=== PATIENT | male | born 1965 | race Caucasian/White ===

== ENCOUNTER → 2019-12-30 | Outpatient (CLI) | payer OTHER | END | disposition home or self-care (01) | LOC: LABWHC1 08:52 | PROVIDERS: ATTEND Surgery | DX: U07.1 COVID-19 (principal) | CPT/HCPCS: 87635 ==

== ENCOUNTER → 2020-03-09 | Outpatient (CLI) | payer OTHER ==
[2020-03-09 15:22] LABS: HCT 40.7 % (39.0-53.0); HGB 12.8 gm/dL (13.0-17.5); MCH 29.8 pg (25.0-35.0); MCHC 31.6 g/dL (31.0-37.0); MCV 94.6 fL (80.0-100.0); Mean Platelet Volume 8.4; Platelet Count 187 k/uL (150-450); RDW 13.6 % (11.5-15.5); WBC 8.3 k/uL (3.8-10.6)
[2020-03-09 15:31] LABS: African American GFR (CKD) >90 (>60 ml/min/1.73 sqM); Anion Gap 7 mmol/L; Blood Urea Nitrogen 17 mg/dL (9-20); Carbon Dioxide 24 mmol/L (22-30); Chloride 106 mmol/L (98-107); Non-African American GFR(CKD) >90 (>60 ml/min/1.73 sqM); Potassium 4.3 mmol/L (3.5-5.1); Sodium 137 mmol/L (137-145)
== END | disposition home or self-care (01) ==
LOC: LABPAT 14:53
PROVIDERS: ATTEND Internal Medicine Interventional Cardiology
DX: Z01.818 Encounter for other preprocedural examination (principal); I70.213 Atherosclerosis of native arteries of extremities with intermittent claudication, bilateral legs
CPT/HCPCS: 36415; 80051; 82565; 84520; 85027

== ENCOUNTER 2020-03-16 06:29 | Day surgery (SDC) | payer OTHER ==
[2020-03-09 16:01] VITALS: BMI 22.7
[~2020-03-16 06:29] MED LIST: SODIUM CHLORIDE 0.9% 1,000 ML in EMPTY BAG 1 BAG IV ONE
[2020-03-16] MEDS ORDERED: amLODIPine 10 MG TAB PO STA (06:50)
[2020-03-16] MEDS ORDERED: lisinopriL 20 MG TAB PO STA (06:50)
[2020-03-16 06:55] VITALS: RESP 16; TEMP 98
[2020-03-16] MEDS: LIDOCAINE 1% INJ 10MG/ML (20 ML MDV) SQ ONE ×2 (08:00→08:04)
[2020-03-16] MEDS ORDERED: MIDAZOLAM 2 MG/2 ML VIAL IV ONE (08:00)
[2020-03-16] MEDS ORDERED: IOPAMIDOL-250 100ML BTL INTRAARTER ONE (08:26)
[2020-03-16] MEDS ORDERED: IOPAMIDOL-250 50ML BTL INTRAARTER ONE (08:27)
[2020-03-16] MEDS ORDERED: SODIUM CHLORIDE 0.9% 1,000 ML IV SCH (08:30)
--- NOTE | 2020-03-16 09:09 | IR ---
EXAMINATION TYPE: IR angio abdominal w runoff DATE OF EXAM: 03/16/2020 CLINICAL HISTORY: Peripheral vascular disease. TECHNIQUE: Fluoroscopy. COMPARISON: None. FINDINGS: Fluoroscopic guidance was provided during abdominal angiogram with runoff procedure perfor med by Dr. New. A total of 1.9 minutes of fluoroscopic time was utilized during the procedure and 0 spot images are saved to PACS. IMPRESSION: As Above.
--- NOTE | 2020-03-16 09:59 | AN ---
ANGIOGRAPHY REPORT DATE OF SERVICE: 03/16/2020 PERFORMING PHYSICIAN: Lefty New MD. PROCEDURE PERFORMED: 1. An abdominal aortogram. 2. Bilateral lower extremities runoff. INDICATION: This is a pleasant 54-year-old gentleman with hypertension and dyslipidemia and history of smoking as well as history of peripheral arterial disease where in the past, he underwent right femoral endarterectomy with [id number] fem-fem bypass, was performed several years ago, was experiencing bilateral lower extremities intermittent claudication, worse on the left side than the right side. No evidence of critical limb ischemia noted. Because of that, he was scheduled to undergo an aortogram with runoff. APPROACH: Right common femoral artery. COMPLICATION: None. LEVEL OF SEDATION: Moderate with sedation length of 22 minutes. PROCEDURE DESCRIPTION: After obtaining an informed consent, the patient was brought to the cardiac fence laborer. The right common femoral artery was cannulated using micropuncture technique, the micropuncture wire passed easily, then I placed a 5-Montenegrin sheath at the right common femoral artery. After that, I did an abdominal aortogram and bilateral lower extremities runoff using 5- Montenegrin pigtail catheter which was initially placed at the level of the renal arteries, then it pulled into above the bifurcation of the aorta to right and left common iliac arteries. The procedure was completed without any complication. SELECTIVE PERIPHERAL ANGIOGRAM: 1. The aorta appeared to be calcified with mild disease only. 2. Common iliac arteries: The right common iliac artery appeared to have mild disease only. The left common iliac artery is occluded by the ostium. 3. The external iliac arteries: The right external iliac artery appeared to have intermediate lesion in the range of 50% to 60%. and left external iliac artery is occluded. 4. Common femoral arteries: The right common femoral artery and left common femoral artery appeared to be patent. 5. Profunda: The right profunda appeared to be patent as well as the left profunda. 6. SFA: Both SFA are patent. 7. Popliteal: Both popliteal are patent. 8. Below the knee: There are 3 vessel runoff below the knee bilaterally. CONCLUSION: 1. Occluded left common and left external iliac arteries. 2. Occluded [id number] fem-fem bypass. POSTPROCEDURE MANAGEMENT: 1. Percutaneous peripheral intervention to open the left common and left external iliac artery. 2. Follow up with the patient. MMODL / IJN: [id number] /
[2020-03-16 13:06] VITALS: BP 132/80
[2020-03-16 14:16] VITALS: PULSE 63
== END 2020-03-16 14:16 | disposition home or self-care (01) ==
LOC: CATHCVL 06:29
PROVIDERS: ATTEND Internal Medicine Interventional Cardiology
DX: I70.213 Atherosclerosis of native arteries of extremities with intermittent claudication, bilateral legs (principal); I70.413 Atherosclerosis of autologous vein bypass graft(s) of the extremities with intermittent claudication, bilateral legs; I74.5 Embolism and thrombosis of iliac artery; I10 Essential (primary) hypertension; E78.5 Hyperlipidemia, unspecified; F17.210 Nicotine dependence, cigarettes, uncomplicated; Z79.899 Other long term (current) drug therapy
CPT/HCPCS: 36200; 75625; 75716; C1769 ×5; C1894 ×2; J2250; J2001; Q9966 ×2

== ENCOUNTER → 2020-04-09 | Outpatient (CLI) | payer OTHER ==
[2020-04-09 16:37] LABS: African American GFR (CKD) >90 (>60 ml/min/1.73 sqM); Anion Gap 5 mmol/L; Blood Urea Nitrogen 23 mg/dL (9-20); Carbon Dioxide 25 mmol/L (22-30); Chloride 108 mmol/L (98-107); Non-African American GFR(CKD) >90 (>60 ml/min/1.73 sqM); Potassium 4.3 mmol/L (3.5-5.1); Sodium 138 mmol/L (137-145)
[2020-04-09 16:43] LABS: HCT 39.6 % (39.0-53.0); HGB 12.5 gm/dL (13.0-17.5); MCHC 31.6 g/dL (31.0-37.0); MCV 94.8 fL (80.0-100.0); Mean Platelet Volume 8.5; Platelet Count 201 k/uL (150-450); RBC 4.18 m/uL (4.30-5.90); RDW 13.9 % (11.5-15.5); WBC 10.7 k/uL (3.8-10.6)
== END | disposition home or self-care (01) ==
LOC: LABPAT 15:58
PROVIDERS: ATTEND Internal Medicine Interventional Cardiology
DX: Z01.818 Encounter for other preprocedural examination (principal); I70.213 Atherosclerosis of native arteries of extremities with intermittent claudication, bilateral legs
CPT/HCPCS: 36415; 80051; 82565; 84520; 85027

== ENCOUNTER 2020-04-18 10:18 | Day surgery (SDC) | payer OTHER ==
[2020-04-12 11:38] VITALS: BMI 22.7
[~2020-04-18 10:18] MED LIST changes: +ALPRAZolam 0.25 MG TAB PO PRN; +ASPIRIN 325 MG TAB PO STA; +ZOLPIDEM 5 MG TAB PO PRN
[2020-04-18] MEDS ORDERED: SODIUM CHLORIDE 0.9% 1,000 ML IV ONE (10:45)
[2020-04-18] MEDS ORDERED: LIDOCAINE 1% INJ 10MG/ML (20 ML MDV) SQ ONE ×3 (13:47→14:28)
[2020-04-18] MEDS ORDERED: MIDAZOLAM 2 MG/2 ML VIAL IVP ONE (13:50)
[2020-04-18] MEDS ORDERED: HEPARIN SODIUM 1,000 UN/ML (10ML VL) IV ONE (14:01)
[2020-04-18] MEDS: MIDAZOLAM 2 MG/2 ML VIAL IVP ONE ×2 (14:36→15:18)
[2020-04-18] MEDS ORDERED: HYDROmorphone 1 MG/ML 1 ML SYRINGE IVP ONE (14:42)
[2020-04-18] MEDS: fentaNYL (PF) 50 MCG/ML 2 ML AMP IV ONE ×2 (15:29→15:33)
[2020-04-18] MEDS ORDERED: CLOPIDOGREL 75 MG TAB PO ONE (15:51)
[2020-04-18] MEDS ORDERED: IOPAMIDOL-250 100ML BTL INTRAARTER ONE (15:51)
[2020-04-18] MEDS ORDERED: SODIUM CHLORIDE 0.9% 1,000 ML in EMPTY BAG 1 BAG IV SCH (16:00)
--- NOTE | 2020-04-18 17:02 | LTR ---
April 18, 2020 To: Dr. Patt Pagan Re: You Morelos (69) Dear Dr. Pagan, Mr. You Morelos underwent successful stenting of the right and left common iliac arteries with good angiographic results and without any complication. I want to thank you for allowing us to participate in his care. Please do not hesitate to call if you have any question or concern. Sincerely, Lefty New M.D. DANYELLE / HEATHER: [id number] /
--- NOTE | 2020-04-18 17:44 | PCN ---
PROCEDURE NOTE PROCEDURE: Percutaneous peripheral intervention. DATE OF SERVICE: 04/18/2020 PERFORMING PHYSICIAN: Lefty New M.D. PROCEDURE PERFORMED: 1. Successful kissing stents of the right and left common iliac arteries using a 7.0 x 59 iCAST stent on the left and a 7.0 x 59 Omnilink stent on the right, with excellent angiographic results. 2. Intravascular ultrasound (IVUS) of the aorta as well as left common iliac and left external iliac and left common femoral arteries. 3. Angiogram of selective bilateral common iliac arteries and external iliac arteries and common femoral arteries. INDICATION: This is a pleasant 54-year-old gentleman who sees Dr. Pagan in the office. He was experiencing left leg intermittent claudication. He is known to have peripheral arterial disease and known to have occluded left iliac. In the past he underwent right- to-left fem-fem bypass. The bypass was closed. Because of that, he was brought today to undergo an intervention on the left iliac artery. APPROACH: Right and left common femoral arteries. COMPLICATIONS: None. LEVEL OF SEDATION: Moderate, with sedation length of 111 minutes. PROCEDURE DESCRIPTION: After obtaining informed consent, the patient was brought to the cardiac energy systems laboratory director. Initially I prepped the right common iliac artery using micropuncture technique. The micropuncture wire passed easily. Then I placed a 7-Persian sheath at the right common femoral artery. Anticoagulation was initiated using heparin with weight-based heparin and continuous ACT monitoring throughout the procedure. Subsequently, I did cross the chronic total occlusion of the left common iliac artery using a 7-Persian sheath. Subsequently the wire was advanced all the way to the left profunda. I accessed at that point the left common femoral artery using micropuncture technique under ultrasound guidance, and I placed a 23 cm sheath at the left common femoral artery. Attempts to cross the chronic total occlusion of the left iliac in retrograde technique was unsuccessful and ended in subintimal space. By the end, I was able to get my wire from the right side to the left side, and then I snared the wire from the left side. With that I was able to advance a Berenstein catheter and the catheter was curled up and the wire was advanced toward the aorta from the left side. By the end, I exchanged my long sheath for a short sheath using an 0.035 stiff Glidewire and I did selective angiogram of bilateral common femoral arteries. The procedure was completed without any complication. POST-PROCEDURE MANAGEMENT: 1. Dual anti-platelet therapy. 2. Risk factor modifications. 3. Follow up with the patient. MMODL / IJN: [id number] /
[2020-04-18] MEDS ORDERED: ATROPINE SULFATE 0.1 MG/ML 10ML SYRINGE ONE (19:00)
[2020-04-18] MEDS: HYDROcodone/APAP 5-325MG 1 EACH TAB PO PRN (20:36)
[2020-04-18] MEDS ORDERED: ATORVASTATIN 40 MG TAB PO SCH (21:00)
[2020-04-18 21:10] VITALS: RESP 16
[2020-04-19] MEDS: HYDROcodone/APAP 5-325MG 1 EACH TAB PO PRN (00:51)
[2020-04-19 06:03] VITALS: BP 124/71; PULSE 57; TEMP 98
[2020-04-19 07:12] LABS: Basophils % (A) 0 %; Eosinophils # (A) 0.1 k/uL (0-0.7); Eosinophils % (A) 1 %; HCT 46.5 % (39.0-53.0); HGB 14.5 gm/dL (13.0-17.5); Lymphocytes # (A) 2.6 k/uL (1.0-4.8); Lymphocytes % (A) 26 %; MCH 30.1 pg (25.0-35.0); MCHC 31.2 g/dL (31.0-37.0); MCV 96.4 fL (80.0-100.0); Mean Platelet Volume 8.7; Monocytes # (A) 0.6 k/uL (0-1.0); Monocytes % (A) 6 %; Neutrophils # (A) 6.5 k/uL (1.3-7.7); Neutrophils % (A) 65 %; Platelet Count 181 k/uL (150-450); RBC 4.82 m/uL (4.30-5.90); RDW 14.1 % (11.5-15.5)
[2020-04-19 07:25] LABS: African American GFR (CKD) >90 (>60 ml/min/1.73 sqM); Anion Gap 5 mmol/L; Blood Urea Nitrogen 20 mg/dL (9-20); Calcium 9.4 mg/dL (8.4-10.2); Carbon Dioxide 25 mmol/L (22-30); Chloride 107 mmol/L (98-107); Glucose 102 mg/dL (74-99); Non-African American GFR(CKD) >90 (>60 ml/min/1.73 sqM); Potassium 4.8 mmol/L (3.5-5.1); Sodium 137 mmol/L (137-145)
[2020-04-19] MEDS ORDERED: lisinopriL 20 MG TAB PO SCH (09:00)
[2020-04-19] MEDS ORDERED: ASPIRIN 81 MG PO SCH (09:00)
[2020-04-19] MEDS ORDERED: amLODIPine 10 MG TAB PO SCH (09:00)
--- NOTE | 2020-04-19 10:07 | DS ---
DISCHARGE SUMMARY BRIEF HISTORY: This is a 54-year-old gentleman who underwent yesterday successful kissing stents of the right and left iliac artery with an excellent angiographic results and without any complication from right and left groin approach. He was seen this morning. He is doing good from the cardiovascular standpoint of view. Both groins are soft and nontender and without any bruises. He is going to be discharged on dual anti-platelet therapy and I will follow up with the patient next week in the office. MMODL / IJN: [id number] /
--- NOTE | 2020-04-19 11:03 | IR ---
EXAMINATION TYPE: IR stent intravas non coronary DATE OF EXAM: 04/18/2020 CLINICAL HISTORY: Peripheral vascular disease. Arterial stenosis. TECHNIQUE: Fluoroscopy. COMPARISON: None. FINDINGS: Fluoroscopic guidance was provided during lower abdominal and pelvic angiogram with stent insertion procedure performed by Dr. New. A total of 33.7 minutes of fluoroscopic time was utilized during the procedure and multiple cine runs are acquired. Please refer to procedure note for further details as I was not present nor performed procedure. IMPRESSION: As Above.
--- NOTE | 2020-04-20 08:57 | AN ---
ANGIOGRAPHY REPORT ADDENDUM: DATE OF SERVICE: 04/18/2020 PROCEDURE: After crossing the lesion in the left iliac artery, I did balloon angioplasty of the left iliac artery using 6 mm balloon. After that I did intravascular ultrasound of the left iliac as well as the aorta to prove that I was in the true lumen and not subintimal space. After that I did kissing stents of the right and left common iliac arteries. On the right side, I placed a 7.0 x 59 mm Omnilink balloon expandable stent. On the left side, I placed 7.0 x 59 mm iCAST stent which was covered stent. Both stents were deployed under about 8 atmospheres for 20 minutes. The following angiogram showed excellent angiographic results and at that point the procedure was completed. MMODL / ADINN: [id number] /
== END 2020-04-19 09:54 | disposition home or self-care (01) ==
LOC: CATHCVL 10:18 → 3SCARD 15:39 → CATHCVL 04-19 09:54
PROVIDERS: ATTEND Internal Medicine Interventional Cardiology
DX: I77.1 Stricture of artery (principal); T82.868A Thrombosis due to vascular prosthetic devices, implants and grafts, initial encounter; I73.9 Peripheral vascular disease, unspecified; I10 Essential (primary) hypertension; E78.5 Hyperlipidemia, unspecified; F17.210 Nicotine dependence, cigarettes, uncomplicated; Z95.828 Presence of other vascular implants and grafts; Z79.899 Other long term (current) drug therapy
CPT/HCPCS: 37221; 37252; 80048; 85025; C1773; C1769 ×6; C1894 ×3; C1725; C1874; C1876; C1753; J2250; J2001; J3010; J1644; J1170; Q9966

== ENCOUNTER 2021-02-15 12:36 | Emergency (ER) | payer OTHER ==
[2021-02-15] MEDS ORDERED: DIPH,PERTUS(ACELL)TETVAC-LF 0.5 ML VIAL IM ONE (12:41)
[2021-02-15] MEDS ORDERED: PIPERACILLIN-TAZOBACTAM 3.375 GM in SODIUM CHLORIDE 0.9% 100 ML IVPB STA (12:41)
[2021-02-15 12:42] VITALS: RESP 18; TEMP 97.6
[2021-02-15] MEDS ORDERED: fentaNYL (PF) 50 MCG/ML 2 ML AMP IVP STA (12:42)
[2021-02-15] MEDS ORDERED: SODIUM CHLORIDE 0.9% 1,000 ML IV STA (12:47)
--- NOTE | 2021-02-15 12:50 | ED ---
General Adult HPI - General Chief complaint: Trauma Stated complaint: crushing injury lt leg Time Seen by Provider: 02/15/21 12:40 Source: EMS, old records reviewed Mode of arrival: EMS Limitations: physical limitation - History of Present Illness Initial comments: Dictation was produced using [employer] dictation software. please excuse any grammatical, word or spelling errors. Chief Complaint: 55-year-old male presents after left lower extremity injury History of Present Illness: 55-year-old male presents to emergency department fo r left lower extremity injury. Patient was at work. 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 The person driving excavator do not see him. Patient states that the excavator backed into him and trapped his leg in between the vehicle and a rock. Tourniquet was placed at 11:36 PM. EMS was called and tourniquet was reapplied at 1147. Patient's tetanus was updated 2 years ago. Medical history of hypertension and peripheral vascular disease. He reports that he has a vascular stent in his left lower leg. Patient has any pain. Just feels a burning sensation to his left lower extremity. The ROS documented in this emergency department record has been reviewed and confirmed by me. Those systems with pertinent positive or negative responses have been documented in the HPI. All other systems are other negative and/or noncontributory. PHYSICAL EXAM: General Impression: Alert and oriented x3, HEENT: Normocephalic atraumatic, extra-ocular movements intact, pupils equal and reactive to light bilaterally, mucous membranes moist. Cardiovascular: Heart regular rate and rhythm Chest: Able to complete full sentences, no retractions, no tachypnea, lungs are auscultation bilaterally Abdomen: abdomen soft, non-tender, non-distended, no organomegaly Musculoskeletal: Pulses present and equal in all extremities, no peripheral edema Left lower extremity: Mangled left lower extremity was exposed bone, muscle tissue, tourniquet is applied at the mid thigh area. He has no palpable pulse. No active exsanguination, dusky left lower extremity. Patient unable to move his toes. Does not feel my touch to this foot. Neurological: CN II-XII grossly intact, no focal motor or sensory deficits noted Skin: Intact with no visualized rashes ED course: 54-year-old male presents with mangled extremity after work accident. Vital signs upon arrival are within acceptable limits. Patient was placed in trauma bay #2 and evaluated via ATLS protocol. His activity level II trauma. Clinically patient does not have any traumatic injuries except for left lower extremity injury. Given complex or toe injury Dr. Moore at [facility] orthopedic trauma was contacted. He recommended that tourniquet be placed and that he be shipped over immediately to [facility] for operative intervention. Patient was started on Zosyn for presumed soiled open fracture. Order for fentanyl. Patient given IV fluid bolus and started on maintenance IV fluids. Accepting transfer physician is Dr. Moore. - Related Data Home Medications Medication Instructions Recorded Confirmed Atorvastatin [Lipitor] 40 mg PO HS 03/09/20 04/18/20 amLODIPine [Norvasc] 10 mg PO QAM 03/09/20 04/18/20 lisinopriL 40 mg PO QAM 03/09/20 04/18/20 Aspirin [Adult Low Dose Aspirin EC] 81 mg PO DAILY 04/12/20 04/18/20 Previous Rx's Medication Instructions Recorded Clopidogrel Bisulfate [Plavix] 75 mg PO DAILY #90 tab 04/19/20 Allergies Allergy/AdvReac Type Severity Reaction Status Date / Time No Known Allergies Allergy Verified 04/12/20 11:31 Review of Systems ROS Statement: Those systems with pertinent positive or pertinent negative responses have been documented in the HPI. ROS Other: All systems not noted in ROS Statement are negative. Past Medical History Past Medical History: Cancer, CVA/TIA, Hyperlipidemia, Hypertension Additional Past Medical History / Comment(s): skin cancer History of Any Multi-Drug Resistant Organisms: None Reported Additional Past Surgical History / Comment(s): "arterial surgery with abdominal artery supplying blood to legs". COLONOSCOPY. REMOVAL SKIN CANCER FROM NECK Past Anesthesia/Blood Transfusion Reactions: No Reported Reaction Past Psychological History: No Psychological Hx Reported Smoking Status: Current every day smoker Past Alcohol Use History: None Reported Past Drug Use History: None Reported - Past Family History Father Family Medical History: Cancer Additional Family Medical History / Comment(s): lung Sister(s) Family Medical History: Cancer Additional Family Medical History / Comment(s): mesotheilioma General Exam Limitations: physical limitation Course Vital Signs 02/15/21 12:37 Temperature 97.6 F Pulse Rate 68 Respiratory 18 Rate Blood Pressure 104/73 O2 Sat by Pulse 100 Oximetry Critical Care Time Critical Care Time: Yes Total Critical Care Time: 33 Disposition Clinical Impression: Open fracture of leg Disposition: OTHER INSTITUTION NOT DEFINED Condition: Critical Referrals: None,Stated [Primary Care Provider] - 1-2 days - Out of Hospital Transfer - Req. Specs Out of Hospital Transfer - Requested Specifics: Other Emergency Center (Formerly [facility])
[2021-02-15 13:01] LABS: Basophils % (A) 0 %; Eosinophils # (A) 0.1 k/uL (0-0.7); Eosinophils % (A) 0 %; HCT 37.3 % (39.0-53.0); HGB 12.1 gm/dL (13.0-17.5); Lymphocytes # (A) 2.2 k/uL (1.0-4.8); Lymphocytes % (A) 18 %; MCH 30.8 pg (25.0-35.0); MCHC 32.5 g/dL (31.0-37.0); MCV 94.8 fL (80.0-100.0); Monocytes # (A) 0.5 k/uL (0-1.0); Monocytes % (A) 4 %; Neutrophils # (A) 9.2 k/uL (1.3-7.7); Neutrophils % (A) 76 %; Platelet Count 214 k/uL (150-450); RBC 3.94 m/uL (4.30-5.90); RDW 14.3 % (11.5-15.5); WBC 12.2 k/uL (3.8-10.6)
[2021-02-15 13:07] LABS: Glucose,Whole Blood 129 mg/dL (75-99)
--- NOTE | 2021-02-15 13:11 | XR ---
EXAMINATION TYPE: XR pelvis AP view DATE OF EXAM: 02/15/2021 CLINICAL HISTORY: pain TECHNIQUE: Single view the pelvis is submitted. FINDINGS: No evidence for fracture, dislocation or bony lesion. Joint spaces are well-preserved. S I joints appear symmetric. IMPRESSION: 1. No acute fracture or dislocation seen. ICD 10 NO FRACTURE, INITIAL EVALUATION
--- NOTE | 2021-02-15 13:12 | XR ---
EXAMINATION TYPE: XR chest 1V portable DATE OF EXAM: 02/15/2021 HISTORY: Shortness of breath. COMPARISON: None. TECHNIQUE: Single view of the chest is submitted. FINDINGS: Demonstrated are scattered senescent parenchymal change. There is no evidence for focal infiltrate. The heart is stable. Hilar and mediastinal structures are within normal limits. Degenerative changes are seen of the dorsal spine. IMPRESSION: 1. Chronic changes without evidence for acute pulmonary disease.
[2021-02-15 13:16] VITALS: BP 111/73; PULSE 57
[2021-02-15 13:18] LABS: ALT 16 U/L (4-49); AST 22 U/L (17-59); African American GFR (CKD) >90 (>60 ml/min/1.73 sqM); Albumin 3.2 g/dL (3.5-5.0); Alcohol <10 mg/dL; Alkaline Phosphatase 72 U/L (38-126); Anion Gap 3 mmol/L; Blood Urea Nitrogen 22 mg/dL (9-20); Calcium 8.8 mg/dL (8.4-10.2); Carbon Dioxide 25 mmol/L (22-30); Chloride 110 mmol/L (98-107); Glucose 135 mg/dL (74-99); Non-African American GFR(CKD) >90 (>60 ml/min/1.73 sqM); Potassium 4.1 mmol/L (3.5-5.1); Sodium 138 mmol/L (137-145); Total Bilirubin 0.3 mg/dL (0.2-1.3); Total Protein 5.5 g/dL (6.3-8.2)
--- NOTE | 2021-02-15 13:22 | XR ---
EXAMINATION TYPE: XR tibia fibula LT, XR foot limited LT, XR ankle limited LT DATE OF EXAM: 02/15/2021 CLINICAL HISTORY: Crushing injury with pain TECHNIQUE: Two views of the left leg, ankle, and foot are obtained. COMPARISON: None. FINDINGS: There is acute severely comminuted displaced fractures of the distal tibial diaphysis and distal fibular diaphysis with multiple small fracture fragments at level of the tibia fracture. The l argest distal fracture fragment tibia has impaction along with medial and posterior displacement with lateral angulation. It retains articulation with the talar dome. Distal fibular fracture fragment is impacted with medial and anterior displacement along with posterior and lateral angulation. No additional proximal fracture or dislocation identified in the left leg. No additional fracture or dislocation in the left foot appears slightly suboptimal due to overlying b lanket material along with gauze and towels. IMPRESSION: As above. Severe acute comminuted displaced fractures through the distal tibial and fibul ar diaphysis
[2021-02-15 13:24] LABS: INR 0.9 (<1.2); Prothrombin Time 9.9 sec (9.0-12.0)
--- NOTE | 2021-02-15 16:37 | P.GSCN ---
History of Present Illness Consult date: 02/15/21 History of present illness: Patient presented as level II trauma injury with crush injury to left leg...obvious deformity needing extensive orthopedic management. Patient being transferred to institution of higher level of care. Past Medical History Past Medical History: Cancer, CVA/TIA, Hyperlipidemia, Hypertension Additional Past Medical History / Comment(s): skin cancer History of Any Multi-Drug Resistant Organisms: None Reported Additional Past Surgical History / Comment(s): "arterial surgery with abdominal artery supplying blood to legs". COLONOSCOPY. REMOVAL SKIN CANCER FROM NECK Past Anesthesia/Blood Transfusion Reactions: No Reported Reaction Past Psychological History: No Psychological Hx Reported Smoking Status: Current every day smoker Past Alcohol Use History: None Reported Past Drug Use History: None Reported - Past Family History Father Family Medical History: Cancer Additional Family Medical History / Comment(s): lung Sister(s) Family Medical History: Cancer Additional Family Medical History / Comment(s): mesotheilioma Medications and Allergies Home Medications Medication Instructions Recorded Confirmed Type Atorvastatin [Lipitor] 40 mg PO 03/09/20 04/18/20 History amLODIPine [Norvasc] 10 mg PO QAM 03/09/20 04/18/20 History lisinopriL 40 mg PO QAM 03/09/20 04/18/20 History Aspirin [Adult Low Dose Aspirin EC] 81 mg PO DAILY 04/12/20 04/18/20 History Clopidogrel Bisulfate [Plavix] 75 mg PO DAILY #90 tab 04/19/20 Rx Allergies Allergy/AdvReac Type Severity Reaction Status Date / Time No Known Allergies Allergy Verified 04/12/20 11:31 Surgical - Exam Vital Signs Temp Pulse Resp BP Pulse Ox 97.6 F 68 18 104/73 100 02/15/21 12:37 02/15/21 12:37 02/15/21 12:37 02/15/21 12:37 02/15/21 12:37 Results - Labs 02/15/21 12:47 02/15/21 12:47 Abnormal Lab Results - Last 24 Hours (Table) 02/15/21 02/15/21 02/15/21 Range/Units 12:47 12:47 12:47 WBC 12.2 H (3.8-10.6) k/uL RBC 3.94 L (4.30-5.90) m/uL Hgb 12.1 L (13.0-17.5) gm/dL Hct 37.3 L (39.0-53.0) % Neutrophils # 9.2 H (1.3-7.7) k/uL APTT 20.0 L (22.0-30.0) sec Chloride 110 H (98-107) mmol/L BUN 22 H (9-20) mg/dL Glucose 135 H (74-99) mg/dL POC Glucose (mg/dL) (75-99) mg/dL Total Protein 5.5 L (6.3-8.2) g/dL Albumin 3.2 L (3.5-5.0) g/dL 02/15/21 Range/Units 13:04 WBC (3.8-10.6) k/uL RBC (4.30-5.90) m/uL Hgb (13.0-17.5) gm/dL Hct (39.0-53.0) % Neutrophils # (1.3-7.7) k/uL APTT (22.0-30.0) sec Chloride (98-107) mmol/L BUN (9-20) mg/dL Glucose (74-99) mg/dL POC Glucose (mg/dL) 129 H (75-99) mg/dL Total Protein (6.3-8.2) g/dL Albumin (3.5-5.0) g/dL Diabetes panel 02/15/21 Range/Units 12:47 Sodium 138 (137-145) mmol/L Potassium 4.1 (3.5-5.1) mmol/L Chloride 110 H (98-107) mmol/L Carbon Dioxide 25 (22-30) mmol/L BUN 22 H (9-20) mg/dL Creatinine 0.69 (0.66-1.25) mg/dL Glucose 135 H (74-99) mg/dL Calcium 8.8 (8.4-10.2) mg/dL AST 22 (17-59) U/L ALT 16 (4-49) U/L Alkaline Phosphatase 72 (38-126) U/L Total Protein 5.5 L (6.3-8.2) g/dL Albumin 3.2 L (3.5-5.0) g/dL Calcium panel 02/15/21 Range/Units 12:47 Calcium 8.8 (8.4-10.2) mg/dL Albumin 3.2 L (3.5-5.0) g/dL Pituitary panel 02/15/21 Range/Units 12:47 Sodium 138 (137-145) mmol/L Potassium 4.1 (3.5-5.1) mmol/L Chloride 110 H (98-107) mmol/L Carbon Dioxide 25 (22-30) mmol/L BUN 22 H (9-20) mg/dL Creatinine 0.69 (0.66-1.25) mg/dL Glucose 135 H (74-99) mg/dL Calcium 8.8 (8.4-10.2) mg/dL Adrenal panel 02/15/21 Range/Units 12:47 Sodium 138 (137-145) mmol/L Potassium 4.1 (3.5-5.1) mmol/L Chloride 110 H (98-107) mmol/L Carbon Dioxide 25 (22-30) mmol/L BUN 22 H (9-20) mg/dL Creatinine 0.69 (0.66-1.25) mg/dL Glucose 135 H (74-99) mg/dL Calcium 8.8 (8.4-10.2) mg/dL Total Bilirubin 0.3 (0.2-1.3) mg/dL AST 22 (17-59) U/L ALT 16 (4-49) U/L Alkaline Phosphatase 72 (38-126) U/L Total Protein 5.5 L (6.3-8.2) g/dL Albumin 3.2 L (3.5-5.0) g/dL
== END 2021-02-15 13:10 | disposition other institution (70) ==
LOC: EC 12:36
DX: S82.92XB Unspecified fracture of left lower leg, initial encounter for open fracture type I or II (principal); I10 Essential (primary) hypertension; E78.5 Hyperlipidemia, unspecified; F17.200 Nicotine dependence, unspecified, uncomplicated; Z86.73 Personal history of transient ischemic attack (TIA), and cerebral infarction without residual deficits; Z85.828 Personal history of other malignant neoplasm of skin; Z79.82 Long term (current) use of aspirin; Z79.899 Other long term (current) drug therapy; W23.0XXA Caught, crushed, jammed, or pinched between moving objects, initial encounter
CPT/HCPCS: 86900; 86901; 80053; 84484; 85025; 85610; 85730; 86850; 80320; 72170; 73590; 73600; 73620; 71045; 96374; 96375; 99284; J2543; J3010

== ENCOUNTER → 2023-01-12 | Outpatient (CLI) | payer OTHER ==
--- NOTE | 2023-01-12 11:15 | XR ---
EXAMINATION TYPE: XR shoulder complete RT DATE OF EXAM: 01/12/2023 11:03 AM INDICATION: Patient age:Male; 57 years old; Reason for study: [id number] RT SHLD PAIN; COMPARISON: None TECHNIQUE: The right shoulder was examined in AP, internally rotated and scapular Y projections. . FINDINGS: No evidence of acute osseous pathology, joint dislocation, or soft tissue swelling. Mild to moderate AC joint arthropathy with joint space narrowing, capsular hypertrophy, and spurring. The remaining po rtions of the visualized chest are unremarkable. IMPRESSION: 1. No acute osseous pathology. 2. Mild to moderate right AC joint arthropathy.
== END | disposition home or self-care (01) ==
LOC: RADXRYALE 10:38
PROVIDERS: ATTEND Internal Medicine
DX: M19.011 Primary osteoarthritis, right shoulder (principal)

== ENCOUNTER → 2023-02-23 | Outpatient (CLI) | payer OTHER ==
[2023-02-23 21:24] LABS: HCT 41.6 % (39.6-50.0); HGB 13.5 d/dL (12.0-15.0); MCH 29.1 pg (27.0-32.0); MCHC 32.5 d/dL (32.0-37.0); MCV 89.7 FL (80.0-97.0); Mean Platelet Volume 11.1 FL (9.5-12.2); NRBC Per 100 WBC 0 X 10*3/uL (0.00-0.01); Platelet Count 236 X 10*3/uL (140-440); RBC 4.64 X 10*6/uL (4.40-5.60); RDW 14.8 % (11.5-14.5); WBC 9.22 X 10*3/uL (4.50-10.00)
[2023-02-23 21:52] LABS: Blood Urea Nitrogen 22.1 mg/dL (9.0-27.0); Carbon Dioxide 21.3 mmol/L (21.6-31.8); Chloride 98 mmol/L (96-109); Potassium 3.8 mmol/L (3.5-5.5); Sodium 134 mmol/L (135-145)
== END | disposition home or self-care (01) ==
LOC: LABPAT 13:51
PROVIDERS: ATTEND Internal Medicine Interventional Cardiology
DX: Z01.812 Encounter for preprocedural laboratory examination (principal); I70.213 Atherosclerosis of native arteries of extremities with intermittent claudication, bilateral legs
CPT/HCPCS: 80051; 82565; 84520; 85027

== ENCOUNTER → 2023-02-27 | Day surgery (SDC) | payer OTHER ==
[~2023-02-27] MED LIST changes: +ALPRAZolam 0.5 MG TAB PO PRN; +ASPIRIN 325 MG TAB PO PRN; -ASPIRIN 325 MG TAB PO STA; +ASPIRIN 81 MG ONE; +HEPARIN SODIUM,PORCINE 10,000 UNIT in SODIUM CHLORIDE 0.9% 1,000 ML IRRIGATION PRN; +HEPARIN SODIUM,PORCINE 2,500 UNIT in SODIUM CHLORIDE 0.9% 250 ML IRRIGATION PRN; +HYDROcodone/APAP 10-325MG 1 EACH TAB ONE; +HYDROcodone/APAP 10-325MG 1 EACH TAB PO ONE; +LIDOCAINE 1% INJ 10MG/ML (20 ML MDV) ONE; +LIDOCAINE 1% INJ 10MG/ML (30 ML VIAL-PF) SQ ONE; +NALOXONE 0.4 MG/ML 1 ML VIAL IVP PRN; +SODIUM CHLORIDE 0.9% 1,000 ML in EMPTY BAG 1 BAG IV SCH
[2023-02-27 08:52] VITALS: RESP 16; TEMP 97.9
[2023-02-27] MEDS: MIDAZOLAM 2 MG/2 ML VIAL IVP ONE ×2 (10:14→10:25)
--- NOTE | 2023-02-27 11:10 | IR ---
EXAMINATION TYPE: IR angio abdominal w runoff DATE OF EXAM: 02/27/2023 COMPARISON: NONE HISTORY: Fluoroscopy time. Fluoroscopy was provided to the referring clinician.
--- NOTE | 2023-02-27 11:48 | P.PCN ---
Date of Procedure: 02/27/23 Operative Findings: AN ABDOMINAL AORTOGRAM AND BILATERAL LOWER EXTREMITIES RUNOFF PERFORMING PHYSICIAN: Lefty New MD PROCEDURE PERFORMED: 1. An abdominal aortogram 2. Bilateral lower extremities runoff 3. Ultrasound-guided access of the left common femoral artery INDICATION: This is a 57-year-old gentleman with known peripheral arterial disease and prior stenting of bilateral iliac who was seen in the office recently for evidence of critical limb ischemia of the right foot. COMPLICATION: None LEVEL OF SEDATION: Moderate was sedation length of 14 minutes APPROACH: Right common femoral artery PROCEDURE DESCRIPTION: After obtaining informed consent and explaining the procedure benefits, risks, and complications, the patient was brought to the cardiac manager lab. The left groin was prepped and draped in sterile fashion. The left common femoral artery was cannulated using micropuncture technique, under ultrasound guidance. A micropuncture wire was advanced, and the micropuncture sheath was advanced over the wire, then the micropuncture sheath was exchanged over an 0.35 wire into a 5-Ukrainian sheath dilator assembly then the wire and dilator were removed and sheath was flushed. We did an abdominal aortogram and bilateral lower extremities runoff using 5- Ukrainian pigtail catheter using a power injection. The catheter was initially placed at the level of the renal arteries, and it was pulled into above the bifurcation of the aorta into right and left common iliac arteries. The procedure was completed and there was no complications. SELECTIVE PERIPHERAL ANGIOGRAM: The abdominal aorta: Appears to be angiographically normal The common iliac arteries: The right common iliac artery is a stented but the stent appeared to be subtotally occluded. The left common iliac artery is a stented and the stent is patent. The external iliac arteries: The right external iliac artery appeared to have an intermediate to severe lesion. The left external iliac artery appeared to have mild disease only. The internal iliac arteries: Both internal iliacs are closed The common femoral arteries: Both common femoral arteries appeared to have mild disease to moderate disease only Superficial femoral arteries: The right SFA appears to have severe lesion at the Jason canal Popliteal arteries: The right popliteal appeared to have mild disease only Below the knees: There are 3 vessels run off below the knee on the right side CONCLUSION: Subtotally occluded stent in the right common iliac artery Intermediate to severe disease involving the right external iliac artery Severe disease involving the right SFA POSTPROCEDURE MANAGEMENT: SALES REPRESENTATIVE [employer] to be scheduled
[2023-02-27 18:09] VITALS: PULSE 61
[2023-02-27 18:16] VITALS: BP 133/80
== END ==
LOC: CATHCVL 07:55
PROVIDERS: ATTEND Internal Medicine Interventional Cardiology
DX: I73.9 Peripheral vascular disease, unspecified (principal); I10 Essential (primary) hypertension; E78.5 Hyperlipidemia, unspecified; F17.210 Nicotine dependence, cigarettes, uncomplicated; Z79.899 Other long term (current) drug therapy
CPT/HCPCS: 36200; 75625; 75716; 76937; C1769 ×3; C1894; J2250; J2001

== ENCOUNTER → 2023-03-18 | Outpatient (CLI) | payer OTHER ==
[2023-03-18 17:13] LABS: HGB 13.9 d/dL (13.0-17.0); MCH 29.7 pg (27.0-32.0); MCHC 33.1 d/dL (32.0-37.0); MCV 89.7 FL (80.0-97.0); Mean Platelet Volume 10.5 FL (9.5-12.2); NRBC Per 100 WBC 0 X 10*3/uL (0.00-0.01); Platelet Count 305 X 10*3/uL (140-440); RBC 4.68 X 10*6/uL (4.40-5.60); RDW 14.8 % (11.5-14.5); WBC 10.81 X 10*3/uL (4.50-10.00)
[2023-03-18 17:21] LABS: Blood Urea Nitrogen 20.8 mg/dL (9.0-27.0); Chloride 102 mmol/L (96-109); Potassium 4.5 mmol/L (3.5-5.5); Sodium 138 mmol/L (135-145)
== END | disposition home or self-care (01) ==
LOC: LABPAT 13:53
PROVIDERS: ATTEND Internal Medicine Interventional Cardiology
DX: Z01.812 Encounter for preprocedural laboratory examination (principal); I70.213 Atherosclerosis of native arteries of extremities with intermittent claudication, bilateral legs
CPT/HCPCS: 80051; 82565; 84520; 85027

== ENCOUNTER 2023-04-08 08:56 | Day surgery (SDC) | payer OTHER ==
[2023-04-02 15:25] VITALS: BMI 25.8
[~2023-04-08 08:56] MED LIST changes: -ALPRAZolam 0.5 MG TAB PO PRN; -ASPIRIN 81 MG ONE; +HEPARIN SODIUM,PORCINE (1 ML) 2,500 UNIT in SODIUM CHLORIDE 0.9% 250 ML IRRIGATION PRN; -HEPARIN SODIUM,PORCINE 2,500 UNIT in SODIUM CHLORIDE 0.9% 250 ML IRRIGATION PRN; -HYDROcodone/APAP 10-325MG 1 EACH TAB ONE; -HYDROcodone/APAP 10-325MG 1 EACH TAB PO ONE; -LIDOCAINE 1% INJ 10MG/ML (20 ML MDV) ONE; -LIDOCAINE 1% INJ 10MG/ML (30 ML VIAL-PF) SQ ONE; -NALOXONE 0.4 MG/ML 1 ML VIAL IVP PRN; -SODIUM CHLORIDE 0.9% 1,000 ML in EMPTY BAG 1 BAG IV SCH
[2023-04-08] MEDS ORDERED: LIDOCAINE 1% INJ 10MG/ML (20 ML MDV) ONE (13:59)
[2023-04-08] MEDS ORDERED: niCARdipine 25 MG/10 ML VIAL ONE (14:19)
[2023-04-08] MEDS ORDERED: MIDAZOLAM 2 MG/2 ML VIAL IVP ONE (14:25)
[2023-04-08] MEDS ORDERED: SODIUM CHLORIDE 0.9% 500 ML 500 ML with niCARdipine 6.25 MG, NITROGLYCERIN-D5W PMX 0.05... IV ONE ×8 (14:39→14:45)
[2023-04-08] MEDS ORDERED: HEPARIN SODIUM 1,000 UN/ML (10ML VL) ONE (14:45)
[2023-04-08] MEDS ORDERED: HEPARIN SODIUM 1,000 UN/ML (10ML VL) IV ONE (14:51)
[2023-04-08] MEDS ORDERED: fentaNYL (PF) 50 MCG/ML 2 ML AMP ONE (15:04)
[2023-04-08] MEDS: fentaNYL (PF) 50 MCG/1 ML VIAL IVP ONE ×2 (15:07→15:13)
[2023-04-08] MEDS ORDERED: HEPARIN SODIUM,PORCINE 30 ML 30 ML ONE (15:35)
[2023-04-08] MEDS ORDERED: IOPAMIDOL-370 100ML BTL INJ ONE (15:43)
[2023-04-08] MEDS: GABAPENTIN 400 MG CAP PO SCH ×2 (16:31→21:43)
[2023-04-08] MEDS: HYDROcodone/APAP 10-325MG 1 EACH TAB PO PRN ×2 (16:31→23:38)
--- NOTE | 2023-04-08 16:32 | IR ---
EXAMINATION TYPE: IR stent intravas non coronary DATE OF EXAM: 04/08/2023 COMPARISON: 04/18/2020 HISTORY: Leg pain. Fluoroscopy time 16.2 minutes. Total DAP 15.8 Gycm2. Fluoroscopy was provided to the referring clinician.
[2023-04-08] MEDS ORDERED: ATROPINE SULFATE 0.1 MG/ML 10ML SYRINGE ONE (17:40)
--- NOTE | 2023-04-08 18:34 | P.PCN ---
Date of Procedure: 04/08/23 Operative Findings: PERCUTANEOUS PERIPHERAL INTERVENTION Performing physician Lefty New M.D. Procedure performed 1. Successful balloon angioplasty of the right SFA and right common iliac and right external iliac artery 2. Adjunctive use of intravascular ultrasound as well as atherectomy 3. Right lower extremity angiogram 4. Ultrasound-guided access of the right common femoral artery and right anterior TPL artery Indication Critical limb ischemia of the right foot and this 57-year-old gentleman who underwent an angiogram and that revealed severe disease involving the right iliac and right SFA Approach Right common femoral artery and right anterior tibial artery Complications None Level of sedation Moderate with a sedation time of 2 hours Procedure description After obtaining an informed consent the patient was brought to the cardiac labor relations or personnel negotiator. The right common iliac artery was cannulated using micropuncture technique under ultrasound guidance and the micropuncture wire passed easily then I placed initially a 4-Kisw[place]ili microcatheter I subsequently I upgraded the sheath into a 6-Kiswahili 23 cm bright tip sheath at the right common femoral artery. Subsequently the sheath was flushed and secured. Subsequently I did access the right anterior tibial artery using ultrasound guidance with micropuncture needle and then I placed a slender 5/6-Kisw[place]ili sheath at the right anterior tibial artery. The sheath was connected into a cocktail containing nitroglycerin and heparin and verapamil. Anticoagulation was initiated using heparin. Please note that the reason we decided to go with pedal approach because the patient h as 2 kissing stents in the iliacs. At that point the right lower extremity angiogram was performed and showed severe disease involving the right SFA. I did across the lesion using 014 wire. I did intravascular ultrasound which showed a diameter between 5-6 mm. I did atherectomy using the Hawk device. Then I did balloon angioplasty using 5 mm balloon with an excellent angiographic results. After that I did balloon angioplasty using a drug-coated balloon and that was 5.0 x 60 mm. Final angiogram of the right SFA showed good angiographic results and the procedure was completed on the SFA with a good angiographic results. Subsequently the wire was pulled from the right SFA. There was a concern about disease involving the right iliac so I did right iliac angiogram on subsequently intravascular ultrasound of the right common and right external iliac arteries. 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 4 the right common iliac artery I did balloon angioplasty using 7 mm balloon with a good angiographic results and I used the same balloon to do balloon angioplasty of the right external iliac artery before I deployed a 8.0 x 40 mm self-expandable stent where the stent was positioned under fluoroscopy guidance and deployed under fluoroscopy guidance a nd post I using 7 mm balloon. Final angiogram showed excellent angiographic result and the procedure was completed was no complication. Postprocedure management 1. Dual antiplatelet therapy 2. Aggressive cholesterol control 3. Risk factors modification 4. Follow-up with the patient
[2023-04-08 21:17] VITALS: RESP 18
[2023-04-09] MEDS: GABAPENTIN 400 MG CAP PO SCH (04:42)
[2023-04-09] MEDS: HYDROcodone/APAP 10-325MG 1 EACH TAB PO PRN (05:45)
[2023-04-09] MEDS ORDERED: CLOPIDOGREL 75 MG TAB PO SCH (09:00)
[2023-04-09] MEDS ORDERED: lisinopriL 20 MG TAB PO SCH (09:00)
[2023-04-09] MEDS ORDERED: ATORVASTATIN 10 MG TAB PO SCH (09:00)
[2023-04-09] MEDS ORDERED: hydroCHLOROthiazide 25 MG TAB PO SCH (09:00)
[2023-04-09] MEDS ORDERED: ASPIRIN 81 MG PO SCH (09:00)
[2023-04-09 09:17] VITALS: PULSE 73
[2023-04-09 09:19] VITALS: BP 131/77; TEMP 98.3
--- NOTE | 2023-04-09 09:43 | P.DS ---
Providers Attending physician: Lefty New Primary care physician: Patt [facility] Course: The patient is a pleasant 57-year-old gentleman with history of left [id number] amputation as well as history of peripheral arterial disease with prior revascularization and also hypertension and dyslipidemia who was diagnosed recently was critical limb ischemia of the right foot. He underwent an angiogram which revealed severe disease involving the right SFA and right iliac. 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 He was seen and evaluated this morning. He is doing well. Both sites appeared to be good and nontender was no bruises. The right common femoral site appeared to be soft and nontender was no bruises and the right anterior tibial side appeared to be soft and nontender was no bruises. The patient is going to be discharged home on dual antiplatelet therapy as well as a statin. I will follow-up with the patient next week in the office Plan - Discharge Summary Discharge Rx Participant: No New Discharge Prescriptions: Continue lisinopriL 20 mg PO QAM Aspirin [Adult Low Dose Aspirin EC] 81 mg PO DAILY Clopidogrel Bisulfate [Plavix] 75 mg PO DAILY #90 tab Gabapentin 800 mg PO QID HYDROcodone/APAP 10-325MG [[place] 10-325] 1 tab PO Q6H PRN PRN Reason: Pain Ibuprofen [Advil] 200 mg PO Q6HR PRN PRN Reason: Pain hydroCHLOROthiazide 25 mg PO DAILY Rosuvastatin Calcium 5 mg PO DAILY Discharge Medication List lisinopriL 20 mg PO QAM 03/09/20 [History] Aspirin [Adult Low Dose Aspirin EC] 81 mg PO DAILY 04/12/20 [History] Clopidogrel Bisulfate [Plavix] 75 mg PO DAILY #90 tab 04/19/20 [Rx] Gabapentin 800 mg PO QID 02/24/23 [History] HYDROcodone/APAP 10-325MG [[place] 10-325] 1 tab PO Q6H PRN 02/24/23 [History] Rosuvastatin Calcium 5 mg PO DAILY 02/24/23 [History] hydroCHLOROthiazide 25 mg PO DAILY 02/24/23 [History] Ibuprofen [Advil] 200 mg PO Q6HR PRN 04/02/23 [History] Follow up Appointment(s)/Referral(s): Lefty New MD [STAFF PHYSICIAN] - 1 Week (THE OFFICE WILL CALL YOU WITH AN APPOINTMENT DATE AND TIME) Patient Instructions/Handouts: Peripheral Vascular Disease (ED), Peripheral Artery Disease (DC), Moderate Sedation (ED), Peripheral Vascular Stent Placement (DC) Activity/Diet/Wound Care/Special Instructions: *NO LIFTING, PUSHING, OR PULLING ANYTHING OVER 5 POUNDS FOR 5 DAYS *NO DRIVING FOR 3 DAYS *YOU CAN REMOVE YOUR DRESSING AND SHOWER TOMORROW BUT DO NOT SUBMERSE YOUR PUNCTURE SITE IN WATER FOR A FEW DAYS TO PREVENT INFECTION - SO NO TUB BATHS, POOLS, HOT TUBS, DISHES....ETC *ANY SIGNS OF BLEEDING (HARDNESS, SWELLING, OR EXCESSIVE BRUISING) HOLD DIRECT PRESSURE ON YOUR PUNCTURE SITE AND COME TO THE NEAREST EMERGENCY ROOM TO GET YOUR PUNCTURE SITE LOOKED AT - DO NOT DRIVE YOURSELF! EITHER CALL EMS OR HAVE SOMEONE DRIVE YOU
== END 2023-04-09 10:50 | disposition home or self-care (01) ==
LOC: CATHCVL 08:56 → 3SCARD 15:57 → CATHCVL 04-09 10:50
PROVIDERS: ATTEND Internal Medicine Interventional Cardiology
DX: I74.3 Embolism and thrombosis of arteries of the lower extremities (principal); I10 Essential (primary) hypertension; I73.9 Peripheral vascular disease, unspecified; E78.5 Hyperlipidemia, unspecified; F17.210 Nicotine dependence, cigarettes, uncomplicated; Z79.899 Other long term (current) drug therapy; Z89.612 Acquired absence of left leg above knee; Z95.5 Presence of coronary angioplasty implant and graft; Z79.02 Long term (current) use of antithrombotics/antiplatelets; Z79.82 Long term (current) use of aspirin
CPT/HCPCS: 37221; 37225; 76937; 37252; C1769 ×4; C1894 ×2; C1725 ×2; C1876; C1714; C1753; C2623; J2250; J1644 ×2; Q9967; J3010; J2305

== ENCOUNTER 2023-10-21 12:09 | Emergency (ER) | payer OTHER ==
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
--- NOTE | 2023-10-21 13:23 | XR ---
EXAMINATION TYPE: XR finger RT DATE OF EXAM: 10/21/2023 1:08 PM CLINICAL INDICATION:Male, 58 years old with history of 5th digit injury; [facility] COMPARISON: None TECHNIQUE: XR finger RT Frontal, lateral and oblique views were obtained. FINDINGS/IMPRESSION: Soft tissue injury to the distal fifth digit of the right hand No evidence radiopaque foreign body no definitive fracture visualized.
[2023-10-21] MEDS: MORPHINE SULFATE 4 MG/ML SYRINGE IM STA (13:38)
[2023-10-21] MEDS: LIDOCAINE/EPINEPHR/TETRACAINE 5 ML BOTTLE TOPICAL ONE (13:38)
[2023-10-21 14:35] VITALS: BP 126/77; PULSE 90; RESP 18; TEMP 98.2
== END 2023-10-21 14:32 | disposition home or self-care (01) ==
LOC: EC 12:09
DX: S61.207A Unspecified open wound of left little finger without damage to nail, initial encounter (principal); F17.200 Nicotine dependence, unspecified, uncomplicated; W22.8XXA Striking against or struck by other objects, initial encounter; Y92.59 Other trade areas as the place of occurrence of the external cause; Y99.0 Civilian activity done for income or pay
CPT/HCPCS: 99283 ×2; 96374; 73140; 96372; J2270

== ENCOUNTER → 2024-01-19 | Outpatient (CLI) | payer OTHER ==
--- NOTE | 2024-01-19 13:42 | XR ---
EXAMINATION TYPE: XR chest 2V DATE OF EXAM: 01/19/2024 COMPARISON: 02/15/2021 HISTORY: Shortness of breath TECHNIQUE: Frontal and lateral views of the chest are obtained. FINDINGS: Scattered senescent parenchymal changes noted. Patchy density right lower lobe may reflect developing pneumonia. Correlate clinically and progress s tudies are recommended. Heart size is stable. Mediastinal structures are stable and grossly unremarkable. No evidence for hilar prominence. Degenerative changes dorsal spine. IMPRESSION: 1. Patchy density right lower lobe may reflect developing pneumonia. Correlate clinically and progres s studies are recommended.
== END | disposition home or self-care (01) ==
LOC: RADXRYALE 13:19
PROVIDERS: ATTEND Internal Medicine
DX: J98.4 Other disorders of lung (principal)
CPT/HCPCS: 71046